=== PATIENT | male | born 1980 | race Hispanic/Latino ===

== ENCOUNTER 2022-10-21 16:37 | Emergency (ER) | payer MEDICARE, OTHER ==
[~2022-10-21] VITALS: Ht 162.6 cm; Wt 88.9 kg
[~2022-10-21 16:37] MED LIST: MINOCYCLINE HC100 MG PO; TEGRETOL200 MG; TERBINAFINE15 GM TP
[2022-10-21] MEDS ORDERED: SODIUM CHLORIDE 0.9% 1000ML 1,000 ML IV SCH (16:45)
[2022-10-21] MEDS ORDERED: KETOROLAC TROMETHAMINE 30 MG/ML VIAL IV ONE (16:55)
[2022-10-21 17:08] LABS: BASOPHILS % 0.2 % (0.0-1.0); EOSINOPHILS % 0.2 % (0.0-6.0); HEMATOCRIT 46.5 % (38.2-49.6); HEMOGLOBIN 15.9 g/dL (14.0-18.0); LYMPHOCYTES # (AUTO) 0.2 (1.0-3.2); LYMPHOCYTES % 1.4 % (18.0-39.1); MEAN CORPUSCULAR HEMOGLOBIN 31.3 pg (28-32); MEAN CORPUSCULAR HGB CONC 34.2 g/dL (31-35); MEAN CORPUSCULAR VOLUME 91.5 fL (81-99); MONOCYTES # (AUTO) 0.5 (0.2-0.8); MONOCYTES % 4.3 % (4.4-11.3); NEUTROPHILS # (AUTO) 11.3 (2.1-6.9); NEUTROPHILS % 93.7 % (38.7-80.0); PLATELET COUNT 212 x10e3/uL (140-360); RED BLOOD COUNT 5.08 x10e6/uL (4.3-5.7); RED CELL DISTRIBUTION WIDTH 12.2 % (11.7-14.4)
[2022-10-21 17:28] LABS: ALBUMIN 4.3 g/dL (3.5-5.0); ALBUMIN/GLOBULIN RATIO 1.4 (0.8-2.0); ANION GAP 15.6 mmol/L (8-16); CALCIUM 9.3 mg/dL (8.4-10.2); CREATININE, SERUM 0.98 mg/dL (0.72-1.25); POTASSIUM 4.6 mmol/L (3.5-5.1)
[2022-10-21 17:44] LABS: CLARITY,URINE CLEAR (CLEAR); COLOR,URINE YELLOW (YELLOW); LEUKOCYTE ESTERASE ,URINE NEGATIVE (NEGATIVE); NITRITE,URINE NEGATIVE (NEGATIVE); PROTEIN,URINE DIPSTICK NEGATIVE (NEGATIVE)
[2022-10-21 17:45] LABS: KETONES,URINE NEGATIVE (NEGATIVE); URINE UROBILINOGEN 0.2 mg/dL (0.2 - 1)
[2022-10-21] MEDS ORDERED: ACETAMINOPHEN 325 MG TAB PO ONE (17:45)
[2022-10-21 17:52] VITALS: O2SAT 99
[2022-10-21 17:56] LABS: LYMPHOCYTES % (MANUAL) 1 % (19-48); MONOCYTES % (MANUAL) 2 % (3.4-9.0); NEUTROPHILS % (MANUAL) 97 % (40-74); PLATELET ESTIMATE ADEQUATE; PLATELET MORPHOLOGY COMMENT NORMAL
[2022-10-21 18:03] LABS: BACTERIA,URINE FEW /HPF; EPITHELIAL CELLS,URINE RARE /LPF; WBC,URINE (MAN) 0-5 /HPF (0-5)
[2022-10-21] MEDS ORDERED: ONDANSETRON ODT4 MG PO (18:03)
[2022-10-21 18:30] VITALS: BP 129/84; PULSE 98; RESP 18; TEMP 98.9
== END 2022-10-21 18:32 | disposition home or self-care (01) ==
LOC: ER 16:47
DX: R50.9 Fever, unspecified (principal); B34.9 Viral infection, unspecified; R11.2 Nausea with vomiting, unspecified; I10 Essential (primary) hypertension; G40.909 Epilepsy, unspecified, not intractable, without status epilepticus; R62.50 Unspecified lack of expected normal physiological development in childhood
CPT/HCPCS: 36415; 70450; 80053; 71045; 81001; 83605; 85025; 87040; 87086; 99284; J1885; J7030

== ENCOUNTER 2025-02-19 20:18 | Inpatient (IN) | payer MEDICARE ==
[~2025-02-19] VITALS: Ht 162.6 cm; Wt 99.8 kg
[~2025-02-19 20:18] MED LIST changes: +ONDANSETRON ODT4 MG PO
[2025-02-19] MEDS: ACETAMINOPHEN 325 MG TAB PO ONE (21:16)
[2025-02-19] MEDS: SODIUM CHLORIDE 0.9% 1000ML 1,000 ML IV ONE (21:50)
[2025-02-19 21:51] LABS: BASOPHILS % 0.2 % (0.0-1.0); EOSINOPHILS % 0.3 % (0.0-6.0); LYMPHOCYTES % 5.4 % (18.0-39.1); MONOCYTES % 6.6 % (4.4-11.3); NEUTROPHILS % 87.1 % (38.7-80.0); RED CELL DISTRIBUTION WIDTH 12.7 % (11.7-14.4)
[2025-02-19 21:53] LABS: INR 1.11
[2025-02-19 22:02] LABS: EST GLOMERULAR FILTRATION RATE 37.0 ML/MIN (>=60)
[2025-02-19 22:16] LABS: LEUKOCYTE ESTERASE ,URINE 1+ (NEGATIVE)
[2025-02-19 22:17] LABS: PROTEIN,URINE DIPSTICK >=300 (NEGATIVE); URINE UROBILINOGEN 0.2 mg/dL (0.2 - 1)
[2025-02-19 22:34] LABS: EPITHELIAL CELLS,URINE FEW /LPF; WBC,URINE (MAN) >50 /HPF (0-5)
[2025-02-20] VITALS (13 sets, daily range): BP systolic 120–142; BP diastolic 85–103; PULSE 96–126; RESP 18–22; TEMP 97.7–100.2; O2SAT 97–100
[2025-02-20] MEDS ORDERED: ONDANSETRON HCL INJ 2MG/ML 2ML 2 MG/ML VIAL IV PRN (01:00)
[2025-02-20] MEDS ORDERED: LOSARTAN POTAS100 MG PO (02:40)
[2025-02-20] MEDS: ACETAMINOPHEN 325 MG TAB PO PRN (03:19)
[2025-02-20] MEDS: SODIUM CHLORIDE 0.9% 1000ML 1,000 ML IV SCH (03:20)
[2025-02-20] MEDS ORDERED: LACTULOSE SYRUP 20 GM/30 ML UDC PO PRN (06:30)
[2025-02-20 08:21] LABS: BASOPHILS % 0.1 % (0.0-1.0); EOSINOPHILS % 0.2 % (0.0-6.0); LYMPHOCYTES % 4.7 % (18.0-39.1); MONOCYTES % 7.3 % (4.4-11.3); NEUTROPHILS % 87.2 % (38.7-80.0); RED CELL DISTRIBUTION WIDTH 12.8 % (11.7-14.4)
[2025-02-20] MEDS ORDERED: LOSARTAN POTASSIUM 100 MG TAB PO SCH (09:00)
[2025-02-20] MEDS: CARBAMAZEPINE 200 MG TAB PO SCH (09:49)
[2025-02-20] MEDS: AMLODIPINE BESYLATE 10 MG TAB PO SCH (09:49)
[2025-02-20 11:24] LABS: LYMPHOCYTES % (MANUAL) 4 % (19-48); MONOCYTES % (MANUAL) 8 % (3.4-9.0); NEUTROPHILS % (MANUAL) 88 % (40-74); PLATELET ESTIMATE ADEQUATE; PLATELET MORPHOLOGY COMMENT NORMAL; RBC MORPHOLOGY COMMENT NORMAL
[2025-02-20] MEDS: LACTULOSE SYRUP 20 GM/30 ML UDC PO PRN (21:00)
[2025-02-20] MEDS: ONDANSETRON HCL INJ 2MG/ML 2ML 2 MG/ML VIAL IV PRN (21:02)
[2025-02-21] VITALS: BP 124/105; PULSE 110; RESP 17; TEMP 98.6; O2SAT 97
[2025-02-21 04:00] VITALS: BP 117/101; PULSE 72; RESP 18; TEMP 98.1; O2SAT 100
[2025-02-21 08:18] LABS: EST GLOMERULAR FILTRATION RATE 59.0 ML/MIN (>=60)
[2025-02-21 08:28] VITALS: BP 122/90; PULSE 109; RESP 18; TEMP 97.6; O2SAT 100
[2025-02-21 09:16] LABS: BASOPHILS % 0.2 % (0.0-1.0); EOSINOPHILS % 2.2 % (0.0-6.0); LYMPHOCYTES % 7.8 % (18.0-39.1); MONOCYTES % 4.2 % (4.4-11.3); NEUTROPHILS % 85.3 % (38.7-80.0); RED CELL DISTRIBUTION WIDTH 12.9 % (11.7-14.4)
[2025-02-21 12:03] VITALS: BP 115/89; PULSE 107; RESP 18; TEMP 97.1; O2SAT 98
[2025-02-21 15:50] VITALS: BP 125/89; PULSE 104; RESP 20; TEMP 98.1; O2SAT 95
[2025-02-21] MEDS: SODIUM BICARBONATE 650 MG TAB PO SCH (16:36)
[2025-02-22] VITALS: BP 137/96; PULSE 100; RESP 19; TEMP 98.6; O2SAT 95
[2025-02-22 07:47] VITALS: BP 130/98; PULSE 96; RESP 20; TEMP 97.6; O2SAT 95
[2025-02-22 07:50] VITALS: BP 130/98; PULSE 96; RESP 20; TEMP 97.6; O2SAT 95
[2025-02-22 11:44] VITALS: BP 126/81; PULSE 102; RESP 19; TEMP 98.2; O2SAT 98
[2025-02-22 16:13] VITALS: BP 129/82; PULSE 100; RESP 18; TEMP 98.1; O2SAT 97
[2025-02-22 20:00] VITALS: BP 138/91; PULSE 100; RESP 20; TEMP 99.1; O2SAT 99
[2025-02-23 04:00] VITALS: BP 121/89; PULSE 89; RESP 18; TEMP 98.4; O2SAT 96
[2025-02-23 06:24] LABS: BASOPHILS % 0.2 % (0.0-1.0); EOSINOPHILS % 3.7 % (0.0-6.0); LYMPHOCYTES % 13.2 % (18.0-39.1); MONOCYTES % 8.9 % (4.4-11.3); NEUTROPHILS % 73.3 % (38.7-80.0); RED CELL DISTRIBUTION WIDTH 12.6 % (11.7-14.4)
[2025-02-23 07:03] LABS: EST GLOMERULAR FILTRATION RATE 69.0 ML/MIN (>=60)
[2025-02-23 07:34] VITALS: BP 128/92; PULSE 98; RESP 18; TEMP 98.1; O2SAT 100
[2025-02-23 16:13] VITALS: BP 133/87; PULSE 100; RESP 20; TEMP 99; O2SAT 96
[2025-02-23 20:00] VITALS: BP 134/83; PULSE 93; RESP 18; TEMP 98; O2SAT 98
[2025-02-23 21:26] VITALS: BP 134/83; PULSE 93; RESP 18; TEMP 98; O2SAT 98
[2025-02-24] VITALS (8 sets, daily range): BP systolic 128–161; BP diastolic 76–101; PULSE 75–114; RESP 18–19; TEMP 98–99.3; O2SAT 95–100
[2025-02-24 06:30] LABS: BASOPHILS % 0.4 % (0.0-1.0); EOSINOPHILS % 4.8 % (0.0-6.0); LYMPHOCYTES % 16.1 % (18.0-39.1); MONOCYTES % 10.1 % (4.4-11.3); NEUTROPHILS % 66.9 % (38.7-80.0); RED CELL DISTRIBUTION WIDTH 12.7 % (11.7-14.4)
[2025-02-24 06:58] LABS: EST GLOMERULAR FILTRATION RATE 73.0 ML/MIN (>=60)
[2025-02-25] VITALS: BP 109/70; PULSE 99; RESP 18; TEMP 98.7; O2SAT 97
[2025-02-25 07:46] VITALS: BP 132/88; PULSE 83; RESP 18; TEMP 98.3; O2SAT 100
[2025-02-25 11:14] VITALS: BP 127/94; PULSE 87; RESP 17; TEMP 98.6; O2SAT 97
[2025-02-25 15:32] VITALS: BP 131/88; PULSE 94; RESP 19; TEMP 98.6; O2SAT 100
[2025-02-25 19:34] VITALS: BP 125/92; PULSE 92; RESP 18; TEMP 99.1; O2SAT 97
[2025-02-25] MEDS ORDERED: AUGMENTIN 500-1 EACH PO (19:46)
== END 2025-02-25 21:32 | disposition home or self-care (01) | DRG 872 ==
LOC: ER 21:06 → ERHOLD 02-20 01:02 → MED/SURG3 02-20 02:08
PROVIDERS: ADMIT Internal Medicine; ATTEND Internal Medicine
PROC: 0T9B70Z Drainage of Bladder with Drainage Device, Via Natural or Artificial Opening (ICD-10-PCS; principal; 2025-02-19)
PROC: 3E0333Z Introduction of Anti-inflammatory into Peripheral Vein, Percutaneous Approach (ICD-10-PCS; 2025-02-19)
DX: A41.50 Gram-negative sepsis, unspecified (principal); E87.20 Acidosis, unspecified; D68.9 Coagulation defect, unspecified; N13.6 Pyonephrosis; N17.9 Acute kidney failure, unspecified; Q60.0 Renal agenesis, unilateral; Q60.3 Renal hypoplasia, unilateral; R65.20 Severe sepsis without septic shock; R31.0 Gross hematuria; I10 Essential (primary) hypertension; N32.0 Bladder-neck obstruction; R33.9 Retention of urine, unspecified; E66.9 Obesity, unspecified; Z68.37 Body mass index [BMI] 37.0-37.9, adult; G40.909 Epilepsy, unspecified, not intractable, without status epilepticus; R62.50 Unspecified lack of expected normal physiological development in childhood; Z96.0 Presence of urogenital implants; Z88.5 Allergy status to narcotic agent; Z88.8 Allergy status to other drugs, medicaments and biological substances
CPT/HCPCS: 36415; 51700; 71045; 74176; 76770; 80048; 80053; 81001; 83605; 85025; 85610; 85730; 87040; 87086; 87186; 93005; 94799; 99284; J0696; J2405; J7030